=== PATIENT | female | born 1935 | race Asian ===

== ENCOUNTER 2018-01-10 13:11 | Outpatient (CLI) | payer OTHER | END 2018-01-10 22:54 | disposition home or self-care (01) | LOC: RAD 13:11 | DX: Z13.820 Encounter for screening for osteoporosis (principal); Z78.0 Asymptomatic menopausal state ==

== ENCOUNTER 2022-09-04 14:03 | Outpatient (CLI) | payer OTHER | END 2022-09-04 19:09 | disposition home or self-care (01) | LOC: US 14:03 | PROVIDERS: ATTEND Nurse Practitioner Family | DX: R09.89 Other specified symptoms and signs involving the circulatory and respiratory systems (principal); R60.0 Localized edema ==